=== PATIENT | female | born 1950 | race Caucasian/White ===

== ENCOUNTER 2019-12-18 06:15 | Emergency (ER) | payer MEDICARE, OTHER ==
[~2019-12-18] VITALS: Ht 165.1 cm; Wt 102.3 kg
[2019-12-18] MEDS ORDERED: IV NORMAL SALINE 1,000ML 1,000 ML IV ONE (07:15)
[2019-12-18 07:39] LABS: BASO % 1 % (0-3); EOS # 0.2 x10^3/uL (0.0-0.7); EOS % 3 % (0-3); HEMATOCRIT 44.2 % (36.0-47.0); HEMOGLOBIN 14.7 g/dL (12.0-15.5); LYMPH # 1.7 x10^3/uL (1.0-4.8); LYMPH % 29 % (24-48); MEAN CORPUSCULAR HEMOGLOBIN 30 pg (25-35); MEAN CORPUSCULAR HGB CONC 33 g/dL (31-37); MEAN CORPUSCULAR VOLUME 89 fL (79-100); MONO # 0.6 x10^3/uL (0.0-1.1); MONO % 10 % (0-9); NEUT # 3.3 x10^3uL (1.8-7.7); NEUT % 57 % (31-73); PLATELET COUNT 295 x10^3/uL (140-400); RED BLOOD COUNT 4.95 x10^6/uL (3.50-5.40); RED CELL DISTRIBUTION WIDTH 14.9 % (11.5-14.5); WHITE BLOOD COUNT 5.8 x10^3/uL (4.0-11.0)
[2019-12-18] MEDS ORDERED: PROCHLORPERAZINE 10 MG/2 ML VIAL. IV ONE (07:45)
[2019-12-18] MEDS ORDERED: diphenhydrAMINE 50 MG/ML VIAL IVP ONE (07:45)
[2019-12-18] MEDS ORDERED: cloNIDine HCL 0.1 MG TABLET PO ONE (07:45)
--- NOTE | 2019-12-18 07:54 | RAD ---
CT head without contrast dated 12/18/2019. No comparison available. CLINICAL INDICATION: Headache. TECHNIQUE: Contiguous axial imaging the head was performed from skull base to vertex. One or more of the following individualized dose reduction techniques were utilized for this examination: 1. Automated exposure control 2. Adjustment of the mA and/or kV according to patient size 3. Use of iterative reconstruction technique FINDINGS: Ventricles and sulci are mildly prominent for age. No midline shift or mass effect. Brain parenchyma is of normal attenuation. No hemorrhage or extra-axial collection. Posterior fossa and brainstem unremarkable. Visualized paranasal sinuses and mastoid air cells are clear. No apparent calvarial abnormality. IMPRESSION: No evidence of acute intracranial abnormality. Electronically signed by: Collin Horn MD (12/18/2019 7:50 AM) [facility]
[2019-12-18 08:17] LABS: CALCIUM 7.7 mg/dL (8.5-10.1); CREATININE 0.8 mg/dL (0.6-1.0); GFR 71.5; POTASSIUM 3.9 mmol/L (3.5-5.1)
[2019-12-18 08:23] LABS: ALBUMIN 3.2 g/dL (3.4-5.0); TOTAL BILIRUBIN 0.3 mg/dL (0.2-1.0); TOTAL PROTEIN 6.3 g/dL (6.4-8.2)
[2019-12-18 08:40] VITALS: BP 138/82
--- NOTE | 2019-12-18 08:46 | PHYS DOC ---
Past History Past Medical History: Hypertension, Hypothyroid, Other Additional Past Medical Histor: sleep apnea Past Surgical History: No Surgical History Alcohol Use: None Adult General Chief Complaint Chief Complaint: HEADACHE HPI HPI Patient is a 69 yo f with cc of headache. Patient's that she woke up around 3 AM with a right-sided headache. 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 She's had 3 episodes of this type of similar headache over the last 3 weeks. 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 Headache is described as throbbing and dull in the right neck and radiates up towards the right sinus and right eyeball area. Vision is okay. Headache is gradually worsening with time it is worse now than when it started. She has had similar headaches like this in the past they have gone away on their own before but this one was worse. Addition she's been done with nausea and she's had frequent diarrhea the last couple of days as well. De nies any actual abdominal pain however just frequent diarrhea she did have to use the bathroom in the emergency room a couple of times. Patient denies fever denies visual changes denies numbness tingling or weakness of the arms or legs. Denies diplopia Review of Systems Review of Systems Constitutional: Denies fever or chills [] Eyes: Denies change in visual acuity, redness, or eye pain [] HENT: Denies nasal congestion or sore throat [] Musculoskeletal: Denies back pain or joint pain [] Integument: Denies rash or skin lesions [] Neurologic: Denies focal weakness or sensory changes [] Endocrine: Denies polyuria or polydipsia [] All other systems were reviewed and found to be within normal limits, except as documented in this note. Current Medications Current Medications Current Medications Medications (Trade) Dose Ordered Sig/Alva Start Time Stop Time Status Last Admin Dose Admin Clonidine HCl (Catapres) 0.2 mg 1X ONCE 12/18/19 07:45 12/18/19 07:46 DC 12/18/19 07:21 0.2 MG Diphenhydramine HCl (Benadryl) 25 mg 1X ONCE 12/18/19 07:45 12/18/19 07:46 DC 12/18/19 07:20 25 MG Prochlorperazine Edisylate (Compazine) 10 mg 1X ONCE 12/18/19 07:45 12/18/19 07:46 DC 12/18/19 07:20 10 MG Sodium Chloride 1,000 ml @ 1,000 mls/hr 1X ONCE 12/18/19 07:15 12/18/19 08:14 DC 12/18/19 07:19 1,000 MLS/HR Allergies Allergies Allergies Coded Allergies Type Severity Reaction Last Updated Verified Sulfa (Sulfonamide Antibiotics) Allergy Intermediate 12/18/19 Yes Physical Exam Physical Exam Constitutional: Well developed, well nourished, no acute distress, non-toxic appearance. [] HENT: Normocephalic, atraumatic, bilateral external ears normal, oropharynx moist, no oral exudates, nose normal. []There is no temporal artery tenderness to palpation. There is evidence of a perforated tympanic membrane there is some scar tissue present there is no signs of erythema or bulging. There is no tenderness of the mastoid bone Eyes: PERRLA, EOMI, conjunctiva normal, no discharge. [] Neck: Normal range of motion, no tenderness, supple, no stridor. [] Cardiovascular:Heart rate regular rhythm, no murmur [] Lungs & Thorax: Bilateral breath sounds clear to auscultation [] Abdomen: Bowel sounds normal, soft, no tenderness, no masses, no pulsatile masses. [] Skin: Warm, dry, no erythema, no rash. [] Back: No tenderness, no CVA tenderness. [] Extremities: No tenderness, no cyanosis, no clubbing, ROM intact, no edema. [] Neurologic: Alert and oriented X 3, normal motor function, normal sensory function, no focal deficits noted. []Olcgty-narh-ukvtrp intact gait and normal speech normal Psychologic: Affect normal, judgement normal, mood normal. [] Current Patient Data Vital Signs Vital Signs Date Time Temp Pulse Resp B/P (MAP) Pulse Ox O2 Delivery O2 Flow Rate FiO2 12/18/19 08:10 56 18 130/54 (79) 96 Room Air 12/18/19 06:20 98.0 Blood pressure was 199/119 at triage it did improve after treatment Lab Results Laboratory Tests Test 12/18/19 07:21 12/18/19 08:00 White Blood Count 5.8 x10^3/uL (4.0-11.0) Red Blood Count 4.95 x10^6/uL (3.50-5.40) Hemoglobin 14.7 g/dL (12.0-15.5) Hematocrit 44.2 % (36.0-47.0) Mean Corpuscular Volume 89 fL (79-100) Mean Corpuscular Hemoglobin 30 pg (25-35) Mean Corpuscular Hemoglobin Concent 33 g/dL (31-37) Red Cell Distribution Width 14.9 % (11.5-14.5) H Platelet Count 295 x10^3/uL (140-400) Neutrophils (%) (Auto) 57 % (31-73) Lymphocytes (%) (Auto) 29 % (24-48) Monocytes (%) (Auto) 10 % (0-9) H Eosinophils (%) (Auto) 3 % (0-3) Basophils (%) (Auto) 1 % (0-3) Neutrophils # (Auto) 3.3 x10^3uL (1.8-7.7) Lymphocytes # (Auto) 1.7 x10^3/uL (1.0-4.8) Monocytes # (Auto) 0.6 x10^3/uL (0.0-1.1) Eosinophils # (Auto) 0.2 x10^3/uL (0.0-0.7) Basophils # (Auto) 0.0 x10^3/uL (0.0-0.2) Sodium Level 139 mmol/L (136-145) Potassium Level 3.9 mmol/L (3.5-5.1) Chloride Level 104 mmol/L (98-107) Carbon Dioxide Level 22 mmol/L (21-32) Anion Gap 13 (6-14) Blood Urea Nitrogen 17 mg/dL (7-20) Creatinine 0.8 mg/dL (0.6-1.0) Estimated GFR (Cockcroft-Gault) 71.5 BUN/Creatinine Ratio 21 (6-20) H Glucose Level 107 mg/dL (70-99) H Calcium Level 7.7 mg/dL (8.5-10.1) L Total Bilirubin 0.3 mg/dL (0.2-1.0) Aspartate Amino Transferase (AST) 15 U/L (15-37) Alanine Aminotransferase (ALT) 24 U/L (14-59) Alkaline Phosphatase 51 U/L (46-116) Total Protein 6.3 g/dL (6.4-8.2) L Albumin 3.2 g/dL (3.4-5.0) L Albumin/Globulin Ratio 1.0 (1.0-1.7) EKG EKG [] Radiology/Procedures Radiology/Procedures [] Impressions: FINDINGS: Ventricles and sulci are mildly prominent for age. No midline shift or mass effect. Brain parenchyma is of normal attenuation. No hemorrhage or extra-axial collection. Posterior fossa and brainstem unremarkable. Visualized paranasal sinuses and mastoid air cells are clear. No apparent calvarial abnormality. IMPRESSION: No evidence of acute intracranial abnormality. Electronically signed by: Collin Horn MD (12/18/2019 7:50 AM) [facility] DICTATED AND SIGNED BY: COLLIN HORN MD DATE: 12/18/19 0750 CC: GREGORY GOETZ MD; GARCÍA LOBO ~ Course & Med Decision Making Course & Med Decision Making Pertinent Labs and Imaging studies reviewed. (See chart for details) []69-year-old female history of hypertension and a perforated tympanic membrane and migraine presenting with right-sided headache. Gradual onset does not sound like subarachnoid CT head negative for intracranial hemorrhage given blood pressure was quite high initially. The patient has no neurologic signs. Headache probably component of migraine disease and also may be some referred pain secondary to her perforated tympanic membrane but no obvious infection was identified. Patient felt better in the ER with Compazine and Benadryl and was able to ambulate to the bathroom without any difficulty at all. She is neurologically intact with no red flags and safe for discharge at this time recommended follow-up for blood pressure and strict return precautions advised she voiced understanding. Patient was given clonidine for blood pressure and improved numbers after treatment, continue losartan Dragon Disclaimer Dragon Disclaimer This electronic medical record was generated, in whole or in part, using a voice recognition dictation system. Departure Departure: Impression: Primary Impression: Headache Disposition: HOME, SELF-CARE Condition: STABLE Patient Instructions: Headache, FAQs GREGORY GOETZ MD Dec 18, 2019 08:46
== END 2019-12-18 08:48 | disposition home or self-care (01) ==
LOC: ER 06:15
DX: R51 Headache (principal); R19.7 Diarrhea, unspecified; I10 Essential (primary) hypertension; E03.9 Hypothyroidism, unspecified; Z88.2 Allergy status to sulfonamides
CPT/HCPCS: 36415; 70450; 80053; 85025; 96361; 96374; 96375; 99284; J0780; J1200; J7030

== ENCOUNTER 2021-04-18 16:26 | Emergency (ER) | payer MEDICARE, OTHER ==
[~2021-04-18] VITALS: Ht 167.6 cm; Wt 102.0 kg
[2021-04-18 17:32] LABS: BASO % 1 % (0-3); EOS # 0.2 x10^3/uL (0.0-0.7); EOS % 3 % (0-3); HEMATOCRIT 39.8 % (36.0-47.0); HEMOGLOBIN 13.5 g/dL (12.0-15.5); LYMPH # 2.1 x10^3/uL (1.0-4.8); LYMPH % 32 % (24-48); MEAN CORPUSCULAR HEMOGLOBIN 31 pg (25-35); MEAN CORPUSCULAR HGB CONC 34 g/dL (31-37); MEAN CORPUSCULAR VOLUME 91 fL (79-100); MONO # 0.8 x10^3/uL (0.0-1.1); MONO % 11 % (0-9); NEUT # 3.6 x10^3uL (1.8-7.7); NEUT % 54 % (31-73); PLATELET COUNT 280 x10^3/uL (140-400); RED BLOOD COUNT 4.38 x10^6/uL (3.50-5.40); RED CELL DISTRIBUTION WIDTH 14.1 % (11.5-14.5); WHITE BLOOD COUNT 6.7 x10^3/uL (4.0-11.0)
--- NOTE | 2021-04-18 17:35 | RAD ---
EXAMINATION: Chest radiograph. VIEWS: Single AP view COMPARISON: None INDICATION:70 years, Female, dizziness. FINDINGS: Normal cardiomediastinal silhouette. No focal consolidation. No pleural effusion or pneumothorax. No acute osseous process. IMPRESSION: No acute cardiopulmonary process. Electronically signed by: eKvin Hager MD (04/18/2021 5:32 PM) [id number]
--- NOTE | 2021-04-18 17:37 | PHYS DOC ---
Past History Past Medical History: Hypertension, Hypothyroid Additional Past Medical Histor: sleep apnea (GLEN MCKNIGHT MD) Past Surgical History: Other Additional Past Surgical Histo: EAR SURGERY (GLEN MCKNIGHT MD) Alcohol Use: None (GLEN MCKNIGHT MD) Adult General Chief Complaint Chief Complaint: DIZZY/LIGHT HEADED [facility] HPI Patient is a 70-year-old female who presents to the emergency room complaining of an episode of dizziness. Patient states that she feels at home when suddenly she felt severely dizzy. She states that she had a wobble down the hallway and lay on the floor. She did not have any nausea or vomiting with this. She has never had anything like this before. She did notice her blood pressure was high and she took her blood pressure medicine early. She does not typically get high blood pressure. She denies any chest pain, shortness of breath, numbness, weakness, cough, abdominal pain, diarrhea. She feels completely back to normal now. Right after the episode she felt generally weak all over like her body had gone through an ordeal. Episode lasted a few minutes. (GLEN MCKNIGHT MD) Review of Systems Review of Systems Complete ROS is negative unless otherwise documented in HPI (GLEN MCKNIGHT MD) Allergies Allergies Allergies Coded Allergies Type Severity Reaction Last Updated Verified Sulfa (Sulfonamide Antibiotics) Allergy Intermediate 04/18/21 Yes (GLEN MCKNIGHT MD) Physical Exam Physical Exam General: Awake, alert, NAD. Well Nourished, well hydrated. Cooperative HEENT: Atraumatic, EOMI, PERRL, airway patent, moist oral mucosa Neck: Supple, trachea midline Respiratory: CTA bilaterally, normal effort, no wheezing/crackles CV: RRR, no murmur, cap refill <2 GI: Soft, nondistended, nontender, no masses MSK: No obvious deformities Skin: Warm, dry, intact Neuro: A&O x3, speech NL, 5/5 strength in BUE/BLE distally and proximally, CN 2-12 intact, cerebellar testing normal Psych: Normal affect, normal mood, not suicidal or homicidal (GLEN MCKNIGHT MD) Current Patient Data Vital Signs Vital Signs Date Time Temp Pulse Resp B/P (MAP) Pulse Ox O2 Delivery O2 Flow Rate FiO2 04/18/21 16:38 97.2 85 18 172/101 (124) 97 Room Air (GLEN MCKNIGHT MD) EKG EKG [] (GLEN MCKNIGHT MD) Radiology/Procedures Radiology/Procedures [] (GLEN MCKNIGHT MD) Heart Score C/O Chest Pain: N/A Risk Factors: Risk Factors: DM, Current or recent (<one month) smoker, HTN, HLP, family history of CAD, obesity. Risk Scores: Risk Factors: DM, Current or recent (<one month) smoker, HTN, HLP, family history of CAD, obesity. (GLEN MCKNIGHT MD) Course & Med Decision Making Course & Med Decision Making Pertinent Labs and Imaging studies reviewed. (See chart for details) Patient is a 70-year-old female with a history of hypertension who presents to the emergency room complaining of generalized weakness and dizziness. History and exam are significant for short episode of dizziness that is now resolved. Given age and history differential for generalized weakness includes dehydration, electrolyte abnormalities, anemia, infection, arrhythmia, medication side effect. At this time CBC, BMP, EKG, UA, troponin, chest x-ray were ordered to evaluate for causes of weakness. (GLEN MCKNIGHT MD) Course & Med Decision Making Patient care handed off to me at checkout pending CT head and reevaluation. Vital signs not concerning. Laboratory analysis not concerning. CT of the head not concerning. Chest x-ray not concerning. On reassessment patient stated she was feeling well, was asymptomatic and was ready to go home. Advised to call primary care physician first thing in the morning to set up a follow-up visit. Gave strict return precautions to the ED. Patient grateful, verbalized understanding and agreed with plan of discharge. (BALBINA LEE MD) Dragon Disclaimer Dragon Disclaimer This electronic medical record was generated, in whole or in part, using a voice recognition dictation system. (GLEN MCKNIGHT MD) Departure Departure: Impression: Primary Impression: Dizzy Additional Impression: Hypertension Disposition: 01 HOME / SELF CARE / HOMELESS Condition: GOOD Referrals: GARCÍA LOBO (PCP) Patient Instructions: Dizziness Additional Instructions: Thank you for coming into the emergency department today and allowing us to take care of you. Please read all of the attached information very carefully. As discussed your vital signs, physical exam, laboratory analysis and x-ray of the head were all reassuring. This does not necessarily mean that you do not have something going on that needs to be watched and evaluated for but here in the emergency department today it did not appear that you are having anything emergent. Please call your primary care physician first thing in the morning to update on your ED visit and set up a follow-up as soon as possible. Please come back to the emergency department immediately with new or concerning symptoms as discussed. Problem Qualifiers GLEN MCKNIGHT MD Apr 18, 2021 17:37 BALBINA LEE MD Apr 18, 2021 19:17
[2021-04-18 17:58] LABS: CALCIUM 8.4 mg/dL (8.5-10.1); CREATININE 0.9 mg/dL (0.6-1.0); GFR 62.3
[2021-04-18 18:04] LABS: ALBUMIN 3.5 g/dL (3.4-5.0); TOTAL BILIRUBIN 0.2 mg/dL (0.2-1.0); TOTAL PROTEIN 7.1 g/dL (6.4-8.2)
--- NOTE | 2021-04-18 18:09 | RAD ---
CT HEAD INDICATION: Reason: sudden onset dizziness / Spl. Instructions: / History: COMPARISON: 06/17/2020 Exposure: One or more of the following individualized dose reduction techniques were utilized for thi s examination: 1. Automated exposure control 2. Adjustment of the mA and/or kV according to patient size 3. Use of iterative reconstruction technique TECHNIQUE: 5 mm contiguous axial images were obtained from the skull base to the vertex in both bone and soft tissue algorithm. FINDINGS: No abnormal attenuation within the brain parenchyma. No evidence of acute intracranial hemorrhage. No extra-axial fluid collections. No mass effect or midline shift. Ventricular size is appropriate. Basal cisterns are patent. No fractures identified.Cooper-white differentiation is preserved.Globes and orbits are within normal l imits. Paranasal sinuses and mastoid air cells are clear. IMPRESSION: No acute intracranial findings. Electronically signed by: Damon Santos MD (04/18/2021 6:07 PM) [id number]
[2021-04-18 18:44] LABS: BILIRUBIN,URINE NEG (NEG); CLARITY,URINE CLEAR; COLOR,URINE YELLOW; GLUCOSE,URINE NEG (NEG); NITRITE,URINE NEG (NEG); UROBILINOGEN,URINE 0.2 mg/dL (0.2 mg/dL)
[2021-04-18 18:47] LABS: BACTERIA,URINE 0 /HPF (0-FEW); RBC,URINE RARE /HPF (0-2); SQUAMOUS EPITHELIAL CELL,UR OCC /LPF; WBC,URINE 0 /HPF (0-4)
[2021-04-18 19:15] VITALS: BP 145/90
--- NOTE | 2021-04-18 20:01 | EKG ---
[address] [address] Test Date: 2021-04-18 Test Time: 16:40:02 Pat Name: RENETTA WEINSTEIN Department: Room: Gender: F Pole Classifier: [facility] : 1950 Requested By: GLEN MCKNIGHT Order Number: [id number] Reading MD: Measurements Intervals Atkinson Rate: 76 P: 41 ME: 170 QRS: -10 QRSD: 102 T: 42 QT: 410 QTc: 466 Interpretive Statements SINUS RHYTHM LEFTWARD AXIS OTHERWISE NORMAL ECG RI6.02 Compared to ECG 04/18/2021 16:38:33 Accelerated junctional rhythm no longer present Right ventricular hypertrophy no longer present Early repolarization no longer present Prolonged QT interval no longer present
== END 2021-04-18 19:30 | disposition home or self-care (01) ==
LOC: ER 16:26
DX: I10 Essential (primary) hypertension (principal); R42 Dizziness and giddiness; R53.1 Weakness; E03.9 Hypothyroidism, unspecified; Z88.2 Allergy status to sulfonamides
CPT/HCPCS: 36415; 70450; 71045; 80053; 81001; 84484; 85025; 93005; 99285

== ENCOUNTER 2021-12-26 04:18 | Emergency (ER) | payer MEDICARE, OTHER ==
[~2021-12-26] VITALS: Ht 167.6 cm; Wt 103.0 kg
--- NOTE | 2021-12-26 04:26 | PHYS DOC ---
Past History Past Medical History: Hypertension, Hypothyroid, Migraines Additional Past Medical Histor: sleep apnea (ZACHARIAH DUQUE MD) Past Surgical History: Other Additional Past Surgical Histo: EAR SURGERY (ZACHARIAH DUQUE MD) Alcohol Use: None (ZACHARIAH DUQUE MD) General Adult HPI: HPI: "..My blood pressure was up... about 2 hrs.. .. I got a headache.. I get migraines... but not with high blood pressue .. " " Took 1/2 pill .. the one I take with my BP is over 160 top number and lower number is more than 100... but my pressure just went higher... I don't know the name of the pill... I do take losartan daily for my blood pressure.. " I was dizzy too..." Patient is a 71 year old female who presents with above hx and complaints headache and hypertension. Patient does have a history of hypertension, hypothyroidism, migraine headaches, obesity. Patient normally follows with Dr. Anila Bustillo. (ZACHARIAH DUQUE MD) Review of Systems: Review of Systems: Constitutional: Denies fever or chills Eyes: Denies change in visual acuity HENT: Denies nasal congestion or sore throat Respiratory: Denies cough or shortness of breath Cardiovascular: Denies chest pain or edema GI: Denies abdominal pain, nausea, vomiting, bloody stools or diarrhea : Denies dysuria Musculoskeletal: Denies back pain or joint pain Integument: Denies rash Neurologic: Complains of global headache,. Denies focal weakness or sensory gill ges. Complains of some dizziness Endocrine: Denies polyuria or polydipsia Lymphatic: Denies swollen glands Psychiatric: Complains of anxiety (ZACHARIAH DUQUE MD) Family History: Family History: Noncontributory (ZACHARIAH DUQUE MD) Current Medications: Current Meds: See nursing for home meds (ZACHARIAH DUQUE MD) Allergies: Allergies: Allergies Coded Allergies Type Severity Reaction Last Updated Verified Sulfa (Sulfonamide Antibiotics) Allergy Intermediate 04/18/21 Yes (ZACHARIAH DUQUE MD) Physical Exam: PE: Constitutional: Well developed, well nourished, no acute distress, non-toxic appearance. [] HENT: Normocephalic, atraumatic, bilateral external ears normal, oropharynx moist, no oral exudates, nose normal. [] Eyes: PERRLA, EOMI, conjunctiva normal, no discharge. [] Neck: Normal range of motion, no tenderness, supple, no stridor. [] Cardiovascular:Heart rate regular rhythm, no murmur [] Lungs & Thorax: Bilateral breath sounds clear to auscultation [] Abdomen: Bowel sounds normal, soft, no tenderness, no masses, no pulsatile masses. [] Skin: Warm, dry, no erythema, no rash. [] Back: No tenderness, no CVA tenderness. [] Extremities: No tenderness, no cyanosis, no clubbing, ROM intact, no edema. [] Neurologic: Alert and oriented X 3, normal motor function, normal sensory function, no focal deficits noted. [] Psychologic: Affect normal, judgement normal, mood normal. [] (ZACHARIAH DUQUE MD) EKG: EKG: My interpretation EKG shows a sinus rhythm at 73 bpm. Does have leftward axis. No findings acute STEMI of contralateral changes. Time of EKG is 432 hours [] My interpretation second EKG shows a sinus rhythm at 62 bpm. Some leftward axis. No acute interval change. (ZACHARIAH DUQUE MD) Radiology/Procedures: Radiology/Procedures: [place] [address] IMAGING REPORT Signed PATIENT: RENETTA WEINSTEIN AACCOUNT: [id number] : 1950 LOCATION: ER AGE: 71 SEX: F EXAM STATUS: REG ER ORD. PHYSICIAN: ZACHARIAH DUQUE MD REASON: headache, dizzy, htn PROCEDURE: CT HEAD WO CONTRAST PQRS Compliance Statement: One or more of the following individualized dose reduction techniques were utilized for this examination: 1. Automated exposure control 2. Adjustment of the mA and/or kV according to patient size 3. Use of iterative reconstruction technique CT head without contrast 12/26/2021 5:10 AM INDICATION: Headache, dizzy. Hypertension COMPARISON: CT head 04/18/2021 TECHNIQUE: Multiple axial CT images of the head were obtained from skull base through the vertex without intravenous contrast. FINDINGS: Head: Ventricles, sulci and basal cisterns are within normal limits. There is no hydrocephalus. Cooper-white matter differentiation is normal. There is no acute intracranial hemorrhage. There is no mass, mass effect or midline shift. Posterior fossa is normal in appearance. Calcified pineal gland. Visualized portions of the orbits are normal. Paranasal sinuses are well aerated. Mastoid air cells are well aerated. Scalp and calvaria are normal. IMPRESSION: No acute intracranial hemorrhage. Electronically signed by: Jenelle Jett MD (12/26/2021 5:29 AM) [facility] DICTATED AND SIGNED BY: JENELLE JETT MD DATE: 12/26/21524 CC: ZACHARIAH DUQUE MD; ANILA BUSTILLO ~MTH0 0 [][place] [address] IMAGING REPORT Signed PATIENT: RENETTA WEINSTEIN AACCOUNT: [id number] : 1950 LOCATION: ER AGE: 71 SEX: F EXAM STATUS: REG ER ORD. PHYSICIAN: ZACHARIAH DUQUE MD REASON: dyspnea PROCEDURE: PORTABLE CHEST 1V XR CHEST 1V 12/26/2021 5:00 AM INDICATION: Dyspnea COMPARISON: 04/18/2021 TECHNIQUE: Portable frontal view of the chest is provided. FINDINGS: The cardiomediastinal silhouette is within normal limits. Lungs are clear. There are no significant pleural effusions. There is no pulmonary vascular congestion. No pneumothorax. No suspicious osseous abnormality. IMPRESSION: There is no acute cardiopulmonary process. Electronically signed by: Jenelle Jett MD (12/26/2021 5:25 AM) [facility] DICTATED AND SIGNED BY: JENELLE JETT MD DATE: 12/26/21523 CC: ZACHARIAH DUQUE MD; William BUSTILLO (ZACHARIAH DUQUE MD) Heart Score: C/O Chest Pain: N/A HEART Score for Chest Pain: HEART Score for Chest Pain Response (Comments) Value History Slighlty/Non-Suspicious 0 ECG Nonspecific Repolarizatio 1 Age > 65 2 Risk Factors 1 or 2 Risk Factors 1 Total 4 Risk Factors: Risk Factors: DM, Current or recent (<one month) smoker, HTN, HLP, family history of CAD, obesity. Risk Scores: Score 0 - 3: 2.5% MACE over next 6 weeks - Discharge Home Score 4 - 6: 20.3% MACE over next 6 weeks - Admit for Clinical Observation Score 7 - 10: 72.7% MACE over next 6 weeks - Early Invasive Strategies (ZACHARIAH DUQUE MD) C/O Chest Pain: No (RISSA HESTER MD) Course & Med Decision Making: Course & Med Decision Making Pertinent Labs and Imaging studies reviewed. (See chart for details) Endorsed to Dr. Hester at shift change. Impression: 1. Migraine variant 2. Accelerated hypertension 3. GERD [] (ZACHARIAH DUQUE MD) Course & Med Decision Making The patient care shift change, pending labetalol and blood pressure reduction Blood pressure improved to 150/81, patient requesting to be discharged to go to sleep. Patient states she feels much better. (RISSA HESTER MD) Dragon Disclaimer: Dragon Disclaimer: This electronic medical record was generated, in whole or in part, using a voice recognition dictation system. (ZACHARIAH DUQUE MD) Departure Departure: Impression: Primary Impression: Headache Additional Impression: Hypertension Disposition: 01 HOME / SELF CARE / HOMELESS Condition: IMPROVED Referrals: ANILA BUSTILLO (PCP) Patient Instructions: General Headache Without Cause Dragon Disclaimer This chart was dictated in whole or in part using Voice Recognition software in a busy, high-work load, and often noisy Emergency Department environment. It may contain unintended and wholly unrecognized errors or omissions. (ZACHARIAH DUQUE MD) ZACHARIAH DUQUE MD Dec 26, 2021 04:26 RISSA HESTER MD Dec 26, 2021 06:46
[2021-12-26] MEDS ORDERED: LABETALOL 20 MG/4 ML DISP.SYRIN. IVP ONE ×3 (05:00→06:15)
[2021-12-26] MEDS ORDERED: ONDANSETRON PF 4 MG/2 ML VIAL. IVP ONE (05:00)
[2021-12-26] MEDS ORDERED: IV RINGERS SOLUTION,LACTATED 1,000 ML IV SCH (05:00)
--- NOTE | 2021-12-26 05:18 | EKG ---
[address] [address] Test Date: 2021-12-26 Test Time: 04:32:51 Pat Name: RENETTA WEINSTEIN Department: Room: Gender: F Head Grower: JOANN : 1950 Requested By: ZACHARIAH DUQUE Order Number: [id number] Reading MD: Richar Schulte MD Measurements Intervals [place]ter Rate: 73 P: 54 LA: 166 QRS: -19 QRSD: 102 T: 50 QT: 426 QTc: 473 Interpretive Statements SINUS RHYTHM Electronically Signed On 01-02-2022 16:22:44 [employer] by Richar Schulte MD
[2021-12-26 05:23] LABS: BASO # 0.1 x10^3/uL (0.0-0.2); BASO % 1 % (0-3); EOS # 0.3 x10^3/uL (0.0-0.7); EOS % 3 % (0-3); HEMATOCRIT 45.4 % (36.0-47.0); HEMOGLOBIN 14.9 g/dL (12.0-15.5); LYMPH % 32 % (24-48); MEAN CORPUSCULAR HEMOGLOBIN 30 pg (25-35); MEAN CORPUSCULAR HGB CONC 33 g/dL (31-37); MEAN CORPUSCULAR VOLUME 92 fL (79-100); MONO # 0.8 x10^3/uL (0.0-1.1); MONO % 9 % (0-9); NEUT # 5.3 x10^3uL (1.8-7.7); NEUT % 56 % (31-73); PLATELET COUNT 304 x10^3/uL (140-400); RED BLOOD COUNT 4.92 x10^6/uL (3.50-5.40); RED CELL DISTRIBUTION WIDTH 14.3 % (11.5-14.5); WHITE BLOOD COUNT 9.4 x10^3/uL (4.0-11.0)
--- NOTE | 2021-12-26 05:27 | RAD ---
XR CHEST 1V 12/26/2021 5:00 AM INDICATION: Dyspnea COMPARISON: 04/18/2021 TECHNIQUE: Portable frontal view of the chest is provided. FINDINGS: The cardiomediastinal silhouette is within normal limits. Lungs are clear. There are no significant pleural effusions. There is no pulmonary vascular congestion. No pneumothora x. No suspicious osseous abnormality. IMPRESSION: There is no acute cardiopulmonary process. Electronically signed by: Zofia Linda MD (12/26/2021 5:25 AM) [facility]
[2021-12-26 05:32] LABS: CALCIUM 9.3 mg/dL (8.5-10.1); CREATININE 0.8 mg/dL (0.6-1.0); GFR 71.1; PLT ESTIMATE ADEQUATE (ADEQUATE); POTASSIUM 3.6 mmol/L (3.5-5.1)
--- NOTE | 2021-12-26 05:32 | RAD ---
RS Compliance Statement: One or more of the following individualized dose reduction techniques were utilized for this examinat ion: 1. Automated exposure control 2. Adjustment of the mA and/or kV according to patient size 3. Use of iterative reconstruction technique CT head without contrast 12/26/2021 5:10 AM INDICATION: Headache, dizzy. Hypertension COMPARISON: CT head 04/18/2021 TECHNIQUE: Multiple axial CT images of the head were obtained from skull base through the vertex with out intravenous contrast. FINDINGS: Head: Ventricles, sulci and basal cisterns are within normal limits. There is no hydrocephalus. Cooper-white matter differentiation is normal. There is no acute intracranial hemorrhage. There is no mass, mass e ffect or midline shift. Posterior fossa is normal in appearance. Calcified pineal gland. Visualized portions of the orbits are normal. Paranasal sinuses are well aerated. Mastoid air cells a re well aerated. Scalp and calvaria are normal. IMPRESSION: No acute intracranial hemorrhage. Electronically signed by: Zofia Linda MD (12/26/2021 5:29 AM) [facility]
[2021-12-26 05:42] LABS: ALBUMIN 3.9 g/dL (3.4-5.0); DIRECT BILIRUBIN 0.1 mg/dL (0.0-0.2); MAGNESIUM 2.3 mg/dL (1.8-2.4); TOTAL BILIRUBIN 0.6 mg/dL (0.2-1.0); TOTAL PROTEIN 7.8 g/dL (6.4-8.2)
[2021-12-26] MEDS ORDERED: FAMOTIDINE 20 MG/2 ML VIAL ONE (06:08)
[2021-12-26] MEDS ORDERED: SUCRALFATE 1 GM TABLET. PO ONE ×2 (06:08→06:15)
[2021-12-26] MEDS ORDERED: FAMOTIDINE 20 MG/2 ML VIAL IVP ONE (06:15)
[2021-12-26] MEDS ORDERED: MAGNESIUM HYDROXIDE 2,400 MG/30 ML ORAL.SUSP. PO ONE (06:15)
--- NOTE | 2021-12-26 06:22 | EKG ---
[address] [address] Test Date: 2021-12-26 Test Time: 05:53:33 Pat Name: RENETTA WEINSTEIN Department: Room: Gender: F Campaign Consultant: : 1950 Requested By: ZACHARIAH DUQUE Order Number: [id number] Reading MD: Álvaro Diaz Measurements Intervals [place] Rate: 62 P: 0 MO: 168 QRS: -15 QRSD: 102 T: 20 QT: 438 QTc: 447 Interpretive Statements SINUS RHYTHM LEFTWARD AXIS Electronically Signed On 12-26-2021 17:02:27 DRUM ATTENDANT by Álvaro Diaz
[2021-12-26 06:40] VITALS: BP 150/81
[2021-12-26 15:21] LABS: CHOLESTEROL/HDL RATIO 3.1; THYROID STIM HORMONE (TSH) 2.581 uIU/mL (0.358-3.740)
== END 2021-12-26 06:50 | disposition home or self-care (01) ==
LOC: ER 04:18
DX: G43.909 Migraine, unspecified, not intractable, without status migrainosus (principal); I10 Essential (primary) hypertension; K21.9 Gastro-esophageal reflux disease without esophagitis; E03.9 Hypothyroidism, unspecified; Z88.2 Allergy status to sulfonamides
CPT/HCPCS: 36415; 70450; 71045; 80048; 80061; 80076; 82550; 83690; 83735; 83880; 84443; 84484; 85025; 85379; 85610; 85730; 93005; 96361; 96374; 96375; 96376; 99285; J2405; J3010; J3490; J7120

== ENCOUNTER → 2021-12-26 | Outpatient (CLI) | payer MEDICARE, OTHER ==
[2021-12-26 06:40] VITALS: BP 150/81
--- NOTE | 2022-01-04 10:47 | RAD ---
INDICATION: 71 years of age asymptomatic female patient presents for screening mammography. No person al or family history of breast cancer. TECHNIQUE: Full field craniocaudal and mediolateral oblique images of both breasts were obtained usi ng digital technique with tomosynthesis and also analyzed with computer-aided detection software. COMPARISON: Prior mammographic imaging dating back to 06/26/2012. BREAST COMPOSITION: Category B: There are scattered fibroglandular densities. FINDINGS: No suspicious masses, microcalcifications or architectural distortion is present to suggest malignanc y in either breast. The visualized axillae are unremarkable. IMPRESSION: No mammographic evidence of malignancy. RECOMMENDATION: Annual screening mammography is recommended, unless clinically indicated sooner based on symptoms or change in physical exam. BIRADS 1: NEGATIVE This study was interpreted with the benefit of Computerized Aided Detection (CAD). Patient information is entered into the reminder system with a target due date for the next screening mammogram. Mammography is the most sensitive method for finding small breast cancers, but it does not detect the m all and is not a substitute for careful clinical examination. A negative mammogram does not negate a clinically suspicious finding and should not result in delay in biopsying a clinically suspicious a bnormality. "Our facility is accredited by the [employer] Mammography Program." Electronically signed by: Jorge Chavis DO (01/04/2022 10:45 AM) [email or web address]
== END ==
LOC: MAMMO 14:44
PROVIDERS: ATTEND Family Medicine
DX: Z12.31 Encounter for screening mammogram for malignant neoplasm of breast (principal)
CPT/HCPCS: 77063; 77067

== ENCOUNTER 2022-01-03 01:03 | Emergency (ER) | payer MEDICARE, OTHER ==
[~2022-01-03] VITALS: Ht 167.6 cm; Wt 102.3 kg
--- NOTE | 2022-01-03 01:39 | PHYS DOC ---
Past History Past Medical History: Hypertension, Hypothyroid, Migraines Additional Past Medical Histor: sleep apnea Past Surgical History: Other Additional Past Surgical Histo: EAR SURGERY Alcohol Use: None General Adult EDM: Chief Complaint: HEADACHE HPI: HPI: 71 yo F PMH HTN, hypothyroidism, sleep apnea (no cpap x4 yrs) and migraine headaches, presents to the ED with complaints of right-sided headache that woke patient up. States she has history of migraines and this feels similar. She checked her blood pressure and it was 200/109. She took an extra tablet of her metoprolol. Reports she saw her primary care physician this past week and her losartan and metoprolol medications were changed from 1 tablet daily to twice daily. Patient denies any falls or head injury. No recent alcohol, cocaine or methamphetamine use. Is not on any anticoagulants. States her blood pressure is always been normal in the morning but worse at night. This morning her blood pressure was 120/60. Patient was seen in the emergency department December 26 for similar symptoms. Her blood pressure at that time was 174/88 and went down to 109/81. States she came here to "get another opinion." Review of Systems: Review of Systems: Constitutional: Denies fever or chills Eyes: Denies change in visual acuity HENT: Denies nasal congestion or sore throat Respiratory: Denies cough or shortness of breath Cardiovascular: Denies chest pain or edema GI: Denies nausea, vomiting or diarrhea : Denies dysuria or vaginal bleeding Musculoskeletal: Denies back pain or joint pain Integument: Denies rash or diaphoresis Neurologic: Denies focal weakness or sensory changes Endocrine: Denies polyuria or polydipsia Lymphatic: Denies swollen glands Psychiatric: Denies depression or anxiety Current Medications: Current Meds: Current Medications Medications (Trade) Dose Ordered Sig/Alva Start Time Stop Time Status Last Admin Dose Admin Acetaminophen (Tylenol) 650 mg 1X ONCE 01/03/22 02:00 01/03/22 02:01 Dexamethasone (Decadron) 10 mg 1X ONCE 01/03/22 02:00 01/03/22 02:01 Diphenhydramine HCl (Benadryl) 25 mg 1X ONCE 01/03/22 02:00 01/03/22 02:01 Prochlorperazine Edisylate (Compazine) 10 mg 1X ONCE 01/03/22 02:00 01/03/22 02:01 Allergies: Allergies: Allergies Coded Allergies Type Severity Reaction Last Updated Verified Sulfa (Sulfonamide Antibiotics) Allergy Intermediate 04/18/21 Yes Physical Exam: PE: Constitutional: Well developed, well nourished, no acute distress, non-toxic appearance. HENT: Normocephalic, atraumatic, Eyes: Pupils equal and reactive to light, EOMI, conjunctiva normal, no discharge, no photosensitivity Neck: Normal range of motion, supple, Cardiovascular: S1/2 present, regular rhythm Lungs & Thorax: Speaking in full sentences, bilateral equal chest rise, no tachypnea or increased work of breathing Abdomen: soft, no tenderness, Skin: Warm, dry, no erythema, no rash. [] Back: No tenderness, no CVA tenderness. [] Extremities: No tenderness, no cyanosis, no lower extremity edema Neurologic: Alert and oriented X 3, normal motor function, normal sensory function, no focal deficits noted. [] Psychologic: Affect normal, judgement normal, mood -appears anxious/worried well regarding blood pressure Current Patient Data: Vital Signs: Vital Signs Date Time Temp Pulse Resp B/P (MAP) Pulse Ox O2 Delivery O2 Flow Rate FiO2 01/03/22 01:07 97.5 80 18 166/94 (118) 97 Room Air EKG: EKG: [] Radiology/Procedures: Radiology/Procedures: IMAGING REPORT Signed PATIENT: RENETTA WEINSTEIN AACCOUNT: [id number] : 1950 LOCATION: ER AGE: 71 SEX: F EXAM STATUS: REG ER ORD. PHYSICIAN: STONE ANTOINE DO REASON: Right side headache w/nausea. Hx: ear surgery PROCEDURE: CT HEAD WO CONTRAST EXAM: CT head without contrast INDICATION: Right-sided headache, nausea COMPARISON: CT head 12/26/2021 TECHNIQUE: Axial CT imaging through the head without intravenous contrast. Sagittal and coronal reformats were obtained. One or more of the following individualized dose reduction techniques were utilized for this examination: 1. Automated exposure control 2. Adjustment of the mA and/or kV according to patient size 3. Use of iterative reconstruction technique. FINDINGS: The ventricles and sulci are within normal limits. López-white matter differentiation is maintained. There is no intracranial hemorrhage, acute infarct, or mass lesion. Basal cisterns are clear. The skull and scalp are intact. Paranasal sinuses and mastoid air cells are clear. Globes and orbits are intact. IMPRESSION: No acute intracranial abnormality. Electronically signed by: Chikis Hidalgo MD (01/03/2022 2:40 AM) [facility] DICTATED AND SIGNED BY: CHIKIS HIDALGO MD DATE: 01/03/22 0239 CC: GARCÍA LOBO; STONE ANTOINE DO ~MTH0 0 Heart Score: C/O Chest Pain: No Risk Factors: Risk Factors: DM, Current or recent (<one month) smoker, HTN, HLP, family history of CAD, obesity. Risk Scores: Score 0 - 3: 2.5% MACE over next 6 weeks - Discharge Home Score 4 - 6: 20.3% MACE over next 6 weeks - Admit for Clinical Observation Score 7 - 10: 72.7% MACE over next 6 weeks - Early Invasive Strategies Course & Med Decision Making: Course & Med Decision Making Pertinent Labs and Imaging studies reviewed. (See chart for details) Concern for uncontrolled hypertension in the setting of headache. Headache/pain relieved after migraine cocktail. Repeat blood pressure 153/90. No evidence of endorgan damage on labs, normal renal function. Educated patient on hypertension (avoid caffeine, taking measurements with stress/pain, etc) and recommended urgent follow-up with primary care physician in 1 to 2 days. Will discharge home with strict ED return precautions were given for chest pain, shortness of breath, confusion or neurologic deficits including facial droop, speech changes or arm and leg weakness. Encouraged urgent outpatient follow-up with PMD in 24 to 48 hours for reevaluation. Life-threatening processes were considered but are low suspicion at this time, given history, physical exam and ED workup. Pt was educated on all prescription medications and adverse effects. All patient's questions were answered and pt was stable at time of discharge. Life/limb-threatening differential includes but is not limited to, meningitis, encephalitis, intracranial hemorrhage, obstructive hydrocephaly, CVA, carbon monoxide poisoning, cerebral or cavernous venous thrombosis, hypertensive emergency, preeclampsia, giant cell arteritis, glaucoma, carotid or vertebral artery dissection, superior vena cava syndrome, infection, optic neuritis, or space-occupying lesions. I have spoken with the patient and/or caregivers. I explained the patient's condition, diagnoses and treatment plan based on the information available to me at this time. I have answered the patient and/or caregiver's questions and addressed any concerns. The patient and/or caregivers have a good understanding of patient's diagnosis, condition and treatment plan as can be expected at this point. Vital signs have been stable. Patient's condition is stable and appropriate for discharge from the emergency department. Patient will pursue further outpatient evaluation with primary care physician or other designated or consulting physician as outlined in the discharge instructions. The patient and/or caregivers are agreeable to this plan of care and follow-up instructions have been explained in detail. The patient and/or caregivers have received these instructions in written form and have expressed an understanding of the discharge instructions. The patient and/or caregivers are aware that any significant change of condition or worsening of symptoms should prompt immediate return to this or the closest emergency department or call to [email or web address] Disclaimer: Justice Disclaimer: This electronic medical record was generated, in whole or in part, using a voice recognition dictation system. Departure Departure: Impression: Primary Impression: Headache Additional Impression: Hypertension Disposition: HOME / SELF CARE / HOMELESS Condition: STABLE Referrals: GARCÍA LOBO (PCP) In 1 to 2 days for blood pressure check Return to emergency department if you should develop any chest pain, shortness of breath, confusion, facial droop, speech changes or arm or leg weakness Patient Instructions: General Headache Without Cause, Hypertension Additional Instructions: FOLLOW UP WITH NEUROLOGY: FOR DEFINITIVE MANAGEMENT of headaches [facility] [address] [facility], [address] [address] EMERGENCY DEPARTMENT GENERAL DISCHARGE INSTRUCTIONS Thank you for coming to [facility] (ED) today and trusting us with you care. We trust that you had a positivie experience in our Emergency Department. If you wish to speak to the department management, you may call the director at [phone]. YOUR FOLLOW UP INSTRUCTIONS ARE FOLLOWS: 1. Do you have a private Doctor? If you do not have a private doctor, please ask for a resource list of physicians or clinics that may be able to assist you with follow up care. 2. The Emergency Physician has interpreted your x-rays. The X-Ray specialist will also review them. If there is a change in the findings, you will be notified in 48 hours when at all possible. 3. A lab test or culture has been done, your results will be reviewed and you will be notified if you need a change in treatment. ADDITIONAL INSTRUCTIONS AND INFORMATION: 1. Your care today has been supervised by a physician who is specially trained in emergency care. Many problems require more than one evaluation for a complete diagnosis and treatment. We recommend that you schedule your follow up appointment as recommended to ensure complete treatment of you illness or injury. If you are unable to obtain follow up care and continue to have a problem, or if your condition worsens, we recommend that you return to the ED. 2. We are not able to safely determine your condition over the phone nor are we able to give sound medical advice over the phone. For these safety reasons, if you call for medical advice we will ask you to come to the ED for further evaluation. 3. If you have any questions regarding these discharge instructions please call the ED at [phone]. SAFETY INFORMATION: In the interest of safety, wellness, and injury prevention; we encourage you to wear your sealbelt, if you smoke; quite smoking, and we encourage family to use a protective helmet for bicycling and other sporting events that present an increased risk for head injury. IF YOUR SYMPTOMS WORSEN OR NEW SYMPTOMS DEVELOP, OR YOU HAVE CONCERNS ABOUT YOUR CONDITION; OR IF YOUR CONDITION WORSENS WHILE YOU ARE WAITING FOR YOUR FOLLOW UP APPOINTMENT; EITHER CONTACT YOUR PRIMARY CARE DOCTOR, THE PHYSICIAN WHOSE NAME AND NUMBER YOU WERE GIVEN, OR RETURN TO THE ED IMMEDIATELY. STONE WOLF DO Jan 03, 2022 01:39
[2022-01-03] MEDS ORDERED: diphenhydrAMINE HCL 25 MG CAPSULE PO ONE (02:00)
[2022-01-03] MEDS ORDERED: PROCHLORPERAZINE 10 MG/2 ML VIAL. IM ONE (02:00)
[2022-01-03] MEDS ORDERED: DEXAMETHASONE 4 MG TABLET PO ONE (02:00)
[2022-01-03] MEDS ORDERED: ACETAMINOPHEN 325 MG TABLET PO ONE (02:00)
[2022-01-03 02:15] LABS: BASO % 1 % (0-3); EOS # 0.3 x10^3/uL (0.0-0.7); EOS % 4 % (0-3); HEMATOCRIT 46.1 % (36.0-47.0); HEMOGLOBIN 14.8 g/dL (12.0-15.5); LYMPH # 2.1 x10^3/uL (1.0-4.8); LYMPH % 35 % (24-48); MEAN CORPUSCULAR HEMOGLOBIN 30 pg (25-35); MEAN CORPUSCULAR HGB CONC 32 g/dL (31-37); MEAN CORPUSCULAR VOLUME 94 fL (79-100); MONO # 0.6 x10^3/uL (0.0-1.1); MONO % 10 % (0-9); NEUT % 50 % (31-73); PLATELET COUNT 284 x10^3/uL (140-400); RED BLOOD COUNT 4.92 x10^6/uL (3.50-5.40); RED CELL DISTRIBUTION WIDTH 14.5 % (11.5-14.5); WHITE BLOOD COUNT 6.1 x10^3/uL (4.0-11.0)
[2022-01-03 02:24] LABS: CALCIUM 9.1 mg/dL (8.5-10.1); CREATININE 0.9 mg/dL (0.6-1.0); GFR 62.1; POTASSIUM 4.2 mmol/L (3.5-5.1)
[2022-01-03 02:30] LABS: ALBUMIN 3.7 g/dL (3.4-5.0); ALBUMIN/GLOBULIN RATIO 1.1 (1.0-1.7); TOTAL BILIRUBIN 0.3 mg/dL (0.2-1.0)
--- NOTE | 2022-01-03 02:43 | RAD ---
EXAM: CT head without contrast INDICATION: Right-sided headache, nausea COMPARISON: CT head 12/26/2021 TECHNIQUE: Axial CT imaging through the head without intravenous contrast. Sagittal and coronal refor mats were obtained. One or more of the following individualized dose reduction techniques were utilized for this examinat ion: 1. Automated exposure control 2. Adjustment of the mA and/or kV according to patient size 3. Use of iterative reconstruction technique. FINDINGS: The ventricles and sulci are within normal limits. López-white matter differentiation is maintained. There is no intracranial hemorrhage, acute infarct, or mass lesion. Basal cisterns are clear. The skull and scalp are intact. Paranasal sinuses and mastoid air cells are clear. Globes and orbits are intact. IMPRESSION: No acute intracranial abnormality. Electronically signed by: Chikis Hidalgo MD (01/03/2022 2:40 AM) [facility]
[2022-01-03 03:21] LABS: SEDIMENTATION RATE 10 (0-25)
[2022-01-03 04:44] VITALS: BP 145/86
== END 2022-01-03 04:47 | disposition home or self-care (01) ==
LOC: ER 01:03
DX: G43.909 Migraine, unspecified, not intractable, without status migrainosus (principal); I10 Essential (primary) hypertension; E03.9 Hypothyroidism, unspecified; G47.30 Sleep apnea, unspecified; Z88.2 Allergy status to sulfonamides
CPT/HCPCS: 36415; 70450; 80053; 85025; 85651; 96372; 99285; J0780; J8540; Q0163